=== PATIENT | male | born 2000 | race Caucasian/White ===

== ENCOUNTER 2023-09-14 09:24 | Emergency (ER) | payer BC ==
[~2023-09-14] VITALS: Ht 177.8 cm; Wt 95.3 kg
[2023-09-14 10:36] LABS: HEMATOCRIT 41.7 % (39.0-48.0); HEMOGLOBIN 14.5 g/dL (13-16.00); MEAN CELL VOLUME 82.6 fL (80.0-100.00); MEAN CORPUSCULAR HEMOGLOBIN 28.8 pg (27.00-32.0); MEAN CORPUSCULAR HGB CONC 34.8 g/dl (32.0-36.0); PLATELET COUNT 228 K/uL (150-450); RED BLOOD COUNT 5.05 M/uL (4.00-6.00); RED CELL DISTRIBUTION WIDTH 12.8 % (11.5-14.5)
[2023-09-14 11:05] LABS: ALBUMIN 4.1 gm/dL (3.4-5.0); BILIRUBIN TOTAL 0.37 mg/dL (0.3-1.2); CALCIUM 9.1 mg/dL (8.5-10.1); CREATININE SERUM 1.08 mg/dL (0.70-1.30); GLOBULINA 3.1 G/DL (2.4-3.5); POTASSIUM 4.56 mEq/L (3.5-5.1); TOTAL PROTEIN 7.2 gm/dL (6.4-8.2)
[2023-09-14 14:24] LABS: PH,URINE 5.5 (5.0-8.0); URINE APPEARANCE Clear; URINE BILIRRUBIN Negative (NEGATIVE); URINE BLOOD Large; URINE COLOR Yellow; URINE GLUCOSE Negative (NEGATIVE); URINE LEUKOCYTE Trace; URINE NITRATE Negative; URINE PROTEIN 30 (NEGATIVE)
[2023-09-14 14:25] LABS: URINE BACTERIA 12.6 uL (0.0-1933); URINE EPITHELIAL CELLS 3.2 uL (0.0-38.8); URINE RBC 8943.3 uL (0.0-20.8); URINE WBC 19.4 uL (0.0-23.2)
== END 2023-09-14 15:40 | disposition home or self-care (01) ==
LOC: ER 09:25
PROVIDERS: General Practice
DX: N20.1 Calculus of ureter (principal); N20.0 Calculus of kidney